=== PATIENT | female | born 1940 | race African-American/Black ===

== ENCOUNTER 2018-01-16 19:55 | Inpatient (IN) | payer MEDICARE ==
--- NOTE | 2018-01-16 20:38 | RAD ---
RADIOGRAPH CHEST 1 VIEW: HISTORY: 77-year-old with dyspnea. FINDINGS: There are no air space densities, pulmonary edema, pneumothorax, or cardiomegaly. The lateral costop hrenic angles are sharp. IMPRESSION: No acute cardiopulmonary findings. taye POS: HEATHER
[2018-01-16 20:54] LABS: Hemoglobin 14.9 g/dL (12.0-16.0); Mean Corpuscular HGB CONC 31.5 g/dL (32.0-36.0); Mean Corpuscular Hemoglobin 29.9 pg (27.0-31.0); Mean Platelet Volume 8.7 fL (7.4-10.4); Platelet Count 307 thou/uL (130-400); RBC Distribution Width 12.4 % (11.5-14.5); Red Blood Cell (RBC) Count 4.97 mill/uL (4.20-5.40); White Blood Cell (WBC) Count 20.5 thou/uL (4.8-10.8)
[2018-01-16 21:08] LABS: Band 2 % (5-11); Lymphocytes 5 % (21-51); MDiff Complete? YES; Monocytes 7 % (0-10); Neutrophil 86 % (42-75)
[2018-01-16 21:11] LABS: Bilirubin Negative (Negative); Blood, Urine Negative (Negative); Clarity CLEAR (Clear); Glucose, Urine (Dipstick) >=1000 mg/dL (Negative); Leukocyte Negative (Negative); Nitrite Negative (Negative); Protein, Urine (Dipstick) Negative (Neg-Trace); Specific Gravity, Urine 1.029 (1.002-1.036); Urobilinogen 0.2 mg/dL (0.2-1.0)
[2018-01-16 21:13] LABS: ALT (SGPT) 12 U/L (8-55); AST (SGOT) 15 U/L (5-34); Albumin 4.2 g/dL (3.4-4.8); Alkaline Phosphatase 122 U/L (40-150); BUN (Urea Nitrogen) 36 mg/dL (9.8-20.1); Bilirubin, Total 0.4 mg/dL (0.2-1.2); CK (CPK) 135 U/L (29-168); Calc. Creatinine Clearance 0 mL/min (70-130); Calcium 9.9 mg/dL (7.8-10.44); Chloride 96 mmol/L (98-107); Estimated GFR-MDRD 25; Globulin 3.2 g/dL (2.4-3.5); Potassium 4.3 mmol/L (3.5-5.1); Protein, Total 7.4 g/dL (6.0-8.3); Sodium 133 mmol/L (136-145)
[2018-01-16 21:16] LABS: Troponin I 0.038 ng/mL (< 0.028)
[2018-01-16 21:37] LABS: CKMB 7.8 ng/mL (0-6.6); Carbon Dioxide Less than 8 mmol/L (23-31); Glucose 793 mg/dL (83-110)
[2018-01-16] MEDS ORDERED: Insulin Regular 300 UNITS/3 ML VIAL ONE (21:40)
[2018-01-16 22:05] LABS: Base Excess-Venous -18.4 mmol/L (0 (+/- 2.5)); Bicarbonate (HCO3v) 7.2 mmol/L (1.0-85.0); CO2 Tension (PvCO2) 18.1 mmHg (41.0-51.0); Calcium, Ionized 1.09 mmol/L (1.12-1.32); Hemoglobin - Calc 14.6 g/dL (12.0-18.0); O2 Tension (PvO2) 61.7 mmHg (35.0-45.0); Potassium 3.7 mmol/L (3.4-4.7); T. Carbon Dioxide 7.7 mmol/L (1.0-85.0); pH (Venous) 7.207 (7.35-7.45); vO2 Saturation-calc 86.8 % (94-98)
[2018-01-16] MEDS ORDERED: Insulin Regular 100 units/100 ml in NS IVPB SCH (22:30)
[2018-01-17] MEDS ORDERED: Piperacillin/Tazobactam 4.5 GM in Sodium Chloride 0.9% 100 ML IVPB SCH (01:15)
[2018-01-17 03:10] VITALS: BMI 22.8
[2018-01-17] MEDS ORDERED: Dextrose 5 %-0.45 % NaCl 1,000 ML IV PRN (03:56)
[2018-01-17] MEDS ORDERED: Dextrose 5% in Water 1,000 ML IV PRN (03:56)
[2018-01-17] MEDS ORDERED: Dextrose 50% Abboject 50 ML SYRINGE SLOW IVP PRN (03:56)
[2018-01-17] MEDS ORDERED: Sodium Chloride 0.9% 1,000 ML IV PRN ×4 (03:56)
[2018-01-17] MEDS ORDERED: NS 0.9% w/ 20 MEQ KCL 1,000 ML/1,000 ML BAG IV PRN (03:56)
[2018-01-17] MEDS ORDERED: CCU ELECTROLYTE REPLACEMENT PROTOCOL FS PRN (03:57)
[2018-01-17] MEDS ORDERED: Magnesium Oxide 400 MG TAB PO PRN ×2 (03:57)
[2018-01-17] MEDS ORDERED: Potassium Phosphate 9 MMOL in Sodium Chloride 0.9% 100 ML IVPB PRN (03:57)
[2018-01-17] MEDS ORDERED: Potassium Chloride 20 MEQ TAB PO PRN (03:57)
[2018-01-17] MEDS ORDERED: Magnesium 2 GM/NS 0.9% 100 ML 2 GM in Premix Bag 1 BAG IVPB PRN (03:57)
[2018-01-17] MEDS ORDERED: Potassium Phosphate 15 MMOL in Sodium Chloride 0.9% 250 ML 250 ML IV PRN (03:57)
[2018-01-17] MEDS ORDERED: Potassium Chloride 40 MEQ in Premix Bag 1 BAG IVPB PRN (03:57)
[2018-01-17] MEDS ORDERED: Potassium Phosphate 12 MMOL in Sodium Chloride 0.9% 250 ML 250 ML IV PRN (03:57)
[2018-01-17] MEDS ORDERED: ADD ELECTROLYTE REPLACEMENT SET TO PROFILE FS SCH (04:00)
[2018-01-17] MEDS ORDERED: Insulin Regular 300 UNITS/3 ML VIAL IVP SCH (04:00)
[2018-01-17] MEDS: NS 0.9% w/ 20 MEQ KCL 1,000 ML/1,000 ML BAG IV PRN ×2 (04:09→06:31)
[2018-01-17 04:57] LABS: Anion Gap 16 mmol/L (10-20); BUN (Urea Nitrogen) 30 mg/dL (9.8-20.1); Calc. Creatinine Clearance 35 mL/min (70-130); Calcium 8.6 mg/dL (7.8-10.44); Carbon Dioxide 15 mmol/L (23-31); Chloride 109 mmol/L (98-107); Estimated GFR-MDRD 49; Glucose 351 mg/dL (83-110); Sodium 137 mmol/L (136-145)
[2018-01-17 05:04] LABS: Potassium 2.9 mmol/L (3.5-5.1)
[2018-01-17] MEDS: Potassium Chloride 40 MEQ in Sodium Chloride 0.9% 250 ML 250 ML IVPB PRN (06:31)
[2018-01-17] MEDS: Sodium Chloride 0.9% 1,000 ML IV SCH ×3 (06:49→20:51)
[2018-01-17] MEDS ORDERED: Piperacillin/Tazobactam 3.375 GM in Sodium Chloride 0.9% 100 ML IVPB SCH (08:00)
[2018-01-17] MEDS: D5 1/2 NS w/20 mEq KCL 1,000 ML IV PRN ×2 (08:37→13:17)
[2018-01-17] MEDS: Enoxaparin Sodium 30 MG/0.3 ML SYRINGE SC SCH (08:37)
--- NOTE | 2018-01-17 09:39 | HP ---
PRIMARY CARE PHYSICIAN: [facility]. SPOOLING MACHINE OPERATOR: Dr. Fernandez. CHIEF COMPLAINT: Fatigue and weakness. HISTORY OF PRESENT ILLNESS: This is a 78-year-old female with a prior history of pancreatitis and resultant insulin-dependent diabetes, who presents with a chief complaint of fatigue and weakness and was brought in by her for these issues. In the emergency department, she was found to be extremely hyperglycemic with a glucose of 790 along with acidosis with a bicarbonate less than 8. Patient has some degree of metabolic encephalopathy with decreased mentation. She is able to answer simple questions appropriately, but unable to cognitively work through more complicated questions. This is not the patient's baseline per the . Patient's at bedside stated that she had this sudden fatigue and weakness over the last day to day and a half. He suspects that she has not been taking her home insulin, because she is sometimes forgetful, particularly when she is ill and does not take them. At the time of my evaluation, the patient no longer has any acute complaints. She is lying in the hospital bed and does not participate very much in obtaining and providing a history. This is mostly provided by the patient's , who is with her at bedside. REVIEW OF SYSTEMS: As per HPI and as noted above. This is provided mostly by the patient's . Constitutional: No significant weight changes, no fevers, no chills. HEENT: No new headaches, dizziness, or lightheadedness. No recent changes in vision that were noted. Cardiovascular: No overt episodes of chest pain, chest pressure, left sided arm numbness or tingling. Respiratory: No apparent difficulty breathing. No new cough. No new congestion. Gastrointestinal: No new nausea, vomiting, abdominal pain, diarrhea, or constipation. Genitourinary: No changes in urinary frequency, quantity, or quality. Musculoskeletal: Other than generalized fatigue and weakness, no focal myalgias or arthralgias. Remainder of review of systems as provided by the on behalf of his has been negative. PAST MEDICAL HISTORY: 1. Type 2 diabetes. 2. Hypertension. PAST SURGICAL HISTORY: 1. Parathyroid tumor removal. 2. Status post right foot surgery. 3. Status post pancreatic surgery including pancreatic removal. HOME MEDICATIONS: Please see the EMR for full details. It appears that the patient currently takes lisinopril 20 mg daily, diltiazem 360 mg p.o. daily, metformin 500 mg p.o. b.i.d., isosorbide mononitrate 30 mg p.o. b.i.d. ALLERGIES: No known drug allergies. FAMILY HISTORY: The patient's is not aware of the patient having any significant family history of diabetes, coronary artery disease, or abdominal disease. SOCIAL HISTORY: The patient is and lives at home with her . No alcohol, tobacco, or illicit drug use. The patient's endorses that he would be the medical decision maker for his , as she is unable to make her medical decisions. He endorses that she wished to be FULL CODE at this point in time. PHYSICAL EXAMINATION: VITAL SIGNS: Temperature of 98.3, pulse of 84, respirations 18, satting 95% on room air with a blood pressure 100/34. GENERAL: The patient is lying in the hospital bed. She has her eyes closed, but is arousable to conversation. She answers short questions, but appears to be overall marginal historian at this point in time. HEENT: Normocephalic, atraumatic. Equal ocular motions are intact. Slightly dry mucous membranes. CARDIOVASCULAR: S1 and S2. Pulses 2+ bilateral upper extremities, no pitting pedal edema. LUNGS: Respirations limited anterior examination. Marginal air movement. No overt wheezes, rales, or rhonchi. ABDOMEN: Positive bowel sounds, soft. No overt tenderness to palpation. LABORATORY DATA AND IMAGING: WBC 20.5, hemoglobin 14.9, hematocrit 47.3, platelets 307. Sodium 133, potassium 4.3, chloride 96, bicarbonate less than 8 , BUN 36, creatinine 1.93, glucose 793, lactic acid 1.3, calcium 9.9, total bilirubin 0.4, AST 15, ALT 12, alkaline phosphatase 122, CK-MB of 7.8, troponin 0.038. Total protein 7.4, albumin 4.2. UA significant for glucose greater than 1000, ketones of 80, beta hydroxybutyrate 15.44. ASSESSMENT AND PLAN: A 78-year-old female presenting with a chief complaint of fatigue and weakness, found to have hyperglycemia and initiate insulin drip for the patient. IV fluids as per insulin protocol. The patient has noted leukocytosis, unclear if there is a source of infection at this point in time for the patient. Initial chest x-ray on initial evaluation has been unremarkable for an infectious etiology. Continue to monitor the patient's mental status and overall fatigue and weakness as her hyperglycemia slowly corrects. 1. Hypertension, stable. 2. Diet: Currently n.p.o. 3. Metabolic encephalopathy, likely to issues above, as discussed above. 4. Deep vein thrombosis prophylaxis with heparin secondary to the patient's acute renal dysfunction. 5. Leukocytosis. Please see discussion above. I appreciate Pulmonary Critical Care consultation for aid in managing this acutely ill patient. Admit the patient inpatient to the IMCU. The patient is currently FULL CODE. Questions or concerns, contact me at [facility]. BEA
[2018-01-17] MEDS: Famotidine 40 MG/4 ML VIAL SLOW IVP SCH (10:04)
[2018-01-17] MEDS ORDERED: Morphine 10 MG/ML VIAL SLOW IVP PRN (11:20)
[2018-01-17 11:29] LABS: Anion Gap 12 mmol/L (10-20); BUN (Urea Nitrogen) 22 mg/dL (9.8-20.1); Calc. Creatinine Clearance 48 mL/min (70-130); Carbon Dioxide 16 mmol/L (23-31); Chloride 116 mmol/L (98-107); Estimated GFR-MDRD 71; Glucose 156 mg/dL (83-110); Lipase 401 U/L (8-78); Sodium 140 mmol/L (136-145)
[2018-01-17] MEDS ORDERED: INSULIN DETEMIR SC SCH (16:00)
[2018-01-17] MEDS ORDERED: ISOVUE-370 76%-LOCM 1 ML ONE (16:56)
--- NOTE | 2018-01-17 17:27 | CT ---
CT ABDOMEN WITH AND WITHOUT CONTRAST 01/17/18 HISTORY: Abdominal pain. Epigastric pain. Elevated lipase. COMPARISON: None. FINDINGS: Mild atelectatic changes in the lung bases. Small effusions. No significant pericardial effusion. Heart size is enlarged. There is abnormal thickening of the second portion of the duodenum. The major ity of the pancreas is atrophied, although there is moderate edema within the anterior pararenal spac e around the expected location of the pancreatic body. No dilated loops of large or small bowel in the abdomen. The aortic contour is nonaneurysmal. Mild intrahepatic biliary dilatation. The common bile duct measures up to 9 mm. No hydronephrosis. Mild facet arthrosis of the lower lumbar spine. IMPRESSION: 1. Atrophy of the pancreatic body and tail with edema within the peripancreatic space and likely reactive thickening of the second and third portions of the duodenum. The findings are concerning fo r pancreatitis of the remaining pancreatic head. There is also mild intrahepatic and extrahepatic stephanie iary dilatation. 2. Small bilateral pleural effusions and atelectasis in the lung bases. 3. Given the thickening of the duodenal folds, a followup upper endoscopy may be beneficial in t his patient. POS: HEATHER
[2018-01-17 17:52] LABS: Anion Gap 11 mmol/L (10-20); BUN (Urea Nitrogen) 15 mg/dL (9.8-20.1); Calc. Creatinine Clearance 52 mL/min (70-130); Calcium 8.6 mg/dL (7.8-10.44); Carbon Dioxide 19 mmol/L (23-31); Chloride 110 mmol/L (98-107); Estimated GFR-MDRD 77; Glucose 208 mg/dL (83-110); Sodium 136 mmol/L (136-145)
[2018-01-17 23:12] LABS: Anion Gap 10 mmol/L (10-20); BUN (Urea Nitrogen) 10 mg/dL (9.8-20.1); Calc. Creatinine Clearance 62 mL/min (70-130); Calcium 8.6 mg/dL (7.8-10.44); Carbon Dioxide 19 mmol/L (23-31); Chloride 112 mmol/L (98-107); Estimated GFR-MDRD Greater than 90; Glucose 117 mg/dL (83-110); Potassium 3.3 mmol/L (3.5-5.1); Sodium 138 mmol/L (136-145)
[2018-01-18 04:29] LABS: #Eosinphils 0.1 thou/uL (0.0-0.7); #Lymphocytes 1.8 thou/uL (1.20-3.40); #Monocytes 0.9 thou/uL (0.11-0.59); #Neutrophils 8.4 thou/uL (1.40-6.50); %Basophils 0.3 % (0.0-1.0); %Eosinophils 0.6 % (0.0-10.0); %Lymphocytes 16.4 % (21.0-51.0); %Monocytes 7.8 % (0.0-10.0); %Neutrophils 74.9 % (42.0-75.0); Hemoglobin 14.3 g/dL (12.0-16.0); Mean Corpuscular HGB CONC 33.9 g/dL (32.0-36.0); Mean Corpuscular Hemoglobin 30.2 pg (27.0-31.0); Mean Corpuscular Volume 89.2 fl (81.0-99.0); Mean Platelet Volume 8.5 fL (7.4-10.4); Platelet Count 191 thou/uL (130-400); RBC Distribution Width 12.6 % (11.5-14.5); Red Blood Cell (RBC) Count 4.73 mill/uL (4.20-5.40); White Blood Cell (WBC) Count 11.2 thou/uL (4.8-10.8)
[2018-01-18 04:41] LABS: Anion Gap 13 mmol/L (10-20); BUN (Urea Nitrogen) 7 mg/dL (9.8-20.1); Calc. Creatinine Clearance 70 mL/min (70-130); Calcium 8.5 mg/dL (7.8-10.44); Carbon Dioxide 22 mmol/L (23-31); Chloride 109 mmol/L (98-107); Estimated GFR-MDRD Greater than 90; Glucose 106 mg/dL (83-110); Sodium 141 mmol/L (136-145)
[2018-01-18] MEDS: Sodium Chloride 0.9% 1,000 ML IV SCH ×2 (06:31→21:38)
[2018-01-18] MEDS: Potassium Chloride 40 MEQ in Sodium Chloride 0.9% 250 ML 250 ML IVPB PRN (06:32)
[2018-01-18] MEDS: Famotidine 40 MG/4 ML VIAL SLOW IVP SCH (08:05)
[2018-01-18] MEDS: Enoxaparin Sodium 30 MG/0.3 ML SYRINGE SC SCH (08:05)
--- NOTE | 2018-01-18 10:37 | PDOC.PN ---
- Subjective Encounter Start Date: 01/17/18 Encounter Start Time: 15:15 Patient is seen today, Alert and oriented. pt is Weak and c/o abdominal pain, has h/o paNCREEATITIS IN REMOTE PAST. - Objective Resuscitation Status: Resuscitation Status FULL:Full Resuscitation MAR Reviewed: Yes Vital Signs & Weight: Vital Signs (12 hours) Temp Pulse Resp BP Pulse Ox 01/18/18 08:00 97.8 F 71 19 95 01/18/18 07:41 97.8 F 71 19 179/73 H 95 01/18/18 04:03 98.4 F 86 17 179/65 H 95 01/18/18 00:23 98.4 F 76 16 162/57 H 95 Weight Weight 134 lb I&O: 01/17/18 01/18/18 01/19/18 06:59 06:59 06:59 Intake Total 1160 1450 Balance 1160 1450 Result Diagrams: 01/18/18 03:55 01/18/18 03:55 Additional Labs: Accuchecks 01/18/18 01/18/18 01/18/18 10:04 08:01 06:01 POC Glucose 161 H 135 H 134 H 01/18/18 01/18/18 01/18/18 03:56 02:46 01:35 POC Glucose 93 81 73 01/18/18 01/17/18 01/17/18 00:39 22:45 21:12 POC Glucose 67 L 103 150 H 01/17/18 01/17/18 01/17/18 20:10 18:59 17:12 POC Glucose 163 H 174 H 180 H 01/17/18 01/17/18 01/17/18 16:12 14:56 14:04 POC Glucose 208 H 211 H 191 H 01/17/18 01/17/18 01/17/18 13:01 12:27 10:57 POC Glucose 186 H 168 H 142 H Radiology Reviewed by me: Yes Phys Exam - Physical Examination HEENT: PERRLA, moist MMs Neck: no nodes, no JVD Respiratory: no wheezing, no rales Cardiovascular: RRR, no significant murmur Gastrointestinal: soft Abdominal pain with tenderness Musculoskeletal: no edema, pulses present Dx/Plan (1) Acute pancreatitis Code(s): K85.90 - ACUTE PANCREATITIS WITHOUT NECROSIS OR INFECTION, UNSP Status: Acute Comment: has elevated Lipase, Will do CT abdomen, to confirm pancreatitis, Pt refusing to believe she has pancrease. (2) DM type 2 (diabetes mellitus, type 2) Status: Acute Comment: Will continue with DKA protocol, will plan to transition to SC insulin, once her AG is closled. Will calculate Total insulin required and Give 50 % as Levemir dose and Stop Isulin drip 2 hrs after. Rest of the insulin will be given as meal time insilin TID. (3) Hypertension Code(s): I10 - ESSENTIAL (PRIMARY) HYPERTENSION Status: Acute Comment: Well controlled, Continue To Monitor (4) Leucocytosis Code(s): D72.829 - ELEVATED WHITE BLOOD CELL COUNT, UNSPECIFIED Status: Acute Comment: likely from Dehydration, Monitor for any source of infection. - Plan cont current plan of care, plan discussed w/ family, PT/OT, psychotherapist social worker, incentive spirometry, DVT proph w/lovenox * . - Discharge Day Encounter end time: 16:10 Review of Systems - Review of Systems Eyes: negative: Pain, Vision Change, Conjunctivae Inflammation, Eyelid Inflammation, Redness, Other ENT: negative: Ear Pain, Ear Discharge, Nose Pain, Nose Discharge, Nose Congestion, Mouth Pain, Mouth Swelling, Throat Pain, Throat Swelling, Other Respiratory: negative: Cough, Dry, Shortness of Breath, Hemoptysis, SOB with Excertion, Pleuritic Pain, Sputum, Wheezing Cardiovascular: negative: chest pain, palpitations, orthopnea, paroxysmal nocturnal dyspnea, edema, light headedness, other Gastrointestinal: negative: Nausea, Vomiting, Abdominal Pain, Diarrhea, Constipation, Melena, Hematochezia, Other Genitourinary: negative: Dysuria, Frequency, Incontinence, Hematuria, Retention , Other - Medications/Allergies Allergies/Adverse Reactions: Allergies Allergy/AdvReac Type Severity Reaction Status Date / Time No Known Allergies Allergy Verified 01/17/18 03:01 Medications: Current Medications Dextrose/Water (Dextrose 50%) 25 gm SLOW IVP PRN PRN PRN Reason: HYPOGLYCEMIA PROTOCOL Enoxaparin Sodium (Lovenox) 30 mg SC 0900 [facility] Last Admin: 01/18/18 08:05 Dose: 30 mg Famotidine (Pepcid) 20 mg SLOW IVP DAILY [facility] Last Admin: 01/18/18 08:05 Dose: 20 mg Glucagon (Glucagon) 1 mg IM PRN PRN PRN Reason: HYPOGLYCEMIA PROTOCOL Sodium Chloride (Normal Saline 0.9%) 1,000 mls @ 1,000 mls/hr IV .Q1H PRN; Protocol PRN Reason: STEP 1: DKA PROTOCOL Sodium Chloride (Normal Saline 0.9%) 1,000 mls @ 500 mls/hr IV .Q2H PRN PRN Reason: STEP 1: DKA PROTOCOL Potassium Chloride/Sodium Chloride (Ns 0.9% W/ 20 Meq Kcl) 1,000 ml in 1,000 mls @ 500 mls/hr IV .Q2H PRN; Protocol PRN Reason: STEP 2: DKA PROTOCOL Last Admin: 01/17/18 06:31 Dose: 1,000 mls Sodium Chloride (Normal Saline 0.9%) 1,000 mls @ 500 mls/hr IV .Q2H PRN; Protocol PRN Reason: STEP 2: DKA PROTOCOL Potassium Chloride/Sodium Chloride (Ns 0.9% W/ 20 Meq Kcl) 1,000 ml in 1,000 mls @ 250 mls/hr IV .Q4H PRN PRN Reason: STEP 3: DKA PROTOCOL Sodium Chloride (Normal Saline 0.9%) 1,000 mls @ 250 mls/hr IV .Q4H PRN PRN Reason: STEP 3:DKA PROTOCOL Dextrose/Sodium Chloride (D5 1/2 Ns) 1,000 mls @ 250 mls/hr IV .Q4H PRN; Protocol PRN Reason: STEP 4: DKA PROTOCOL Potassium Chloride/Dextrose/Sod Cl (D5 1/2 Ns W/20 Meq Kcl) 1,000 mls @ 250 mls /hr IV .Q4H PRN; Protocol PRN Reason: STEP 4: DKA PROTOCOL Last Admin: 01/17/18 13:17 Dose: 1,000 mls Dextrose/Water (D5w) 1,000 mls @ 0 mls/hr IV INF PRN; As Directed PRN Reason: HYPOGLYCEMIA PROTOCOL Last Admin: 01/18/18 00:57 Dose: 1,000 mls Potassium Chloride 40 meq/ (Sodium Chloride) 270 mls @ 135 mls/hr IVPB ASDIR PRN PRN Reason: FOR SERUM K+ 2.5 - 3.5 Last Admin: 01/18/18 06:32 Dose: 270 mls Potassium Chloride 40 meq/ (Device) 100 mls @ 50 mls/hr IVPB ASDIR PRN PRN Reason: FOR SERUM K+ 2.5 - 3.5 Magnesium Sulfate 1 gm/ Sodium (Chloride) 102 mls @ 102 mls/hr IV PRN PRN PRN Reason: MAG LEVEL 1.4 - 2.0 Magnesium Sulfate 2 gm/ Device 100 mls @ 100 mls/hr IVPB ASDIR PRN PRN Reason: MAGNESIUM < 1.4 Potassium Phosphate 9 mmol/ (Sodium Chloride) 103 mls @ 25.75 mls/hr IVPB ASDIR PRN PRN Reason: Phosphate 1.0-1.8 Potassium Phosphate 12 mmol/ (Sodium Chloride) 254 mls @ 63.5 mls/hr IV ASDIR PRN PRN Reason: Serum phosphate 0.5-0.9 Potassium Phosphate 15 mmol/ (Sodium Chloride) 255 mls @ 63.75 mls/hr IV ASDIR PRN PRN Reason: Serum Phos < 0.5 Sodium Chloride (Normal Saline 0.9%) 1,000 mls @ 100 mls/hr IV .Q10H [facility] Last Admin: 01/18/18 06:31 Dose: 1,000 mls Magnesium Oxide (Magnesium Oxide) 400 mg PO BIDPRN PRN PRN Reason: FOR SERUM MAG 1.4 - 2.0 Magnesium Oxide (Magnesium Oxide) 800 mg PO PRN PRN PRN Reason: FOR SERUM MAG < 1.4 Miscellaneous Medication (Phos-Nak) 1 pkt PO TIDPRN PRN PRN Reason: FOR PHOS LEVEL 1.0 - 1.8 Miscellaneous Medication (Phos-Nak) 2 pkt PO TIDPRN PRN PRN Reason: FOR PHOS LEVEL 0.5 - 1.0 Morphine Sulfate (Morphine) 3 mg SLOW IVP Q3H PRN PRN Reason: Pain Last Admin: 01/17/18 13:16 Dose: 3 mg Ccu Electrolyte (Replacement Protocol) 0 each FS PRN PRN PRN Reason: FOR ELECTROLYTE REPLACEMENT Potassium Chloride (K-Dur) 40 meq PO ASDIR PRN PRN Reason: FOR SERUM K+ 2.5 - 3.5 Potassium Chloride (Klor-Con) 40 meq PER TUBE ASDIR PRN PRN Reason: FOR SERUM K+ 2.5-3.5 Sodium Chloride (Flush - Normal Saline) 10 ml IVF PRN PRN PRN Reason: Saline Flush
[2018-01-18 11:36] LABS: Anion Gap 8 mmol/L (10-20); BUN (Urea Nitrogen) 6 mg/dL (9.8-20.1); Calc. Creatinine Clearance 63 mL/min (70-130); Calcium 9.1 mg/dL (7.8-10.44); Carbon Dioxide 32 mmol/L (23-31); Chloride 104 mmol/L (98-107); Estimated GFR-MDRD Greater than 90; Glucose 204 mg/dL (83-110); Sodium 140 mmol/L (136-145)
--- NOTE | 2018-01-18 13:00 | PQF ---
DATE: 01-18-18 ATTN: DR. TRISHA BRIONES Please exercise your independent, professional judgment in responding to the clarification form. Clinical indicators are provided on the bottom of this form for your review Please check appropriate box(s) to clarify if the following diagnosis has been ruled in or ruled out: DKA [x ] Ruled in diagnosis [ ] Continue to treat [ ] Resolved [ ] Ruled out diagnosis [ ] Other diagnosis [ ] Unable to determine In addition, please specify: Present on Admission (POA): [x ] Yes [ ] No [ ] Unable to determine For continuity of documentation, please document condition throughout progress notes and discharge summary. Thank You. CLINICAL INDICATORS - SIGNS / SYMPTOMS / LABS ER DIAGNOSIS: DKA, DEHYDRATION, DIARRHEA, SEPSIS, VOMITING H&P: FATIGUE AND WEAKNESS, FOUND TO HAVE HYPERGLYCEMIA AND INITIATE INSULIN DRIP FOR THE PATIENT. IV FLUIDS PER INSULIN PROTOCOL. PN DR. BRIONES 01-17-18: ACUTE PANCREATITIS, ACUTE DM TYPE 2, WILL CONTINUE WITH DKA PROTOCOL, WILL PLAN TO TRANSITION TO SC INSULIN, ONCE HER AG IS CLOSED RISK FACTORS: HX OF TYPE 2 DIABETES, HTN, FATIGUE WEAKNESS, HE SUSPECTS SHE HAS NOT BEEN TAKING HER HOME INSULIN, BECAUSE SHE IS SOMETIMES FORGETFUL, PARTICULARLY WHEN SHE IS ILL AND DOES NOT TAKE THEM. TREATMENTS: PN DR. BRIONES 01-17-18: ACUTE PANCREATITIS, ACUTE DM TYPE 2, WILL CONTINUE WITH DKA PROTOCOL, WILL PLAN TO TRANSITION TO SC INSULIN, ONCE HER AG IS CLOSED (This form is maintained as a part of the permanent medical record) 2014 [employer]. All Rights Reserved MTDD
--- NOTE | 2018-01-18 15:25 | PDOC.PN ---
- Subjective Encounter Start Date: 01/18/18 Encounter Start Time: 11:00 Patient is seen today, alert and oriented. her Abdominal pain is improving. pt is seen by GI today, on clear liquids. - Objective Resuscitation Status: Resuscitation Status FULL:Full Resuscitation MAR Reviewed: Yes Vital Signs & Weight: Vital Signs (12 hours) Temp Pulse Resp BP Pulse Ox 01/18/18 11:10 97.9 F 66 20 170/94 H 96 01/18/18 08:00 97.8 F 71 19 95 01/18/18 07:41 97.8 F 71 19 179/73 H 95 01/18/18 04:03 98.4 F 86 17 179/65 H 95 Weight Weight 134 lb I&O: 01/17/18 01/18/18 01/19/18 06:59 06:59 06:59 Intake Total 1160 1450 Balance 1160 1450 Result Diagrams: 01/18/18 03:55 01/18/18 11:09 Additional Labs: Accuchecks 01/18/18 01/18/18 01/18/18 12:08 10:04 08:01 POC Glucose 189 H 161 H 135 H 01/18/18 01/18/18 01/18/18 06:01 03:56 02:46 POC Glucose 134 H 93 81 01/18/18 01/18/18 01/17/18 01:35 00:39 22:45 POC Glucose 73 67 L 103 01/17/18 01/17/18 01/17/18 21:12 20:10 18:59 POC Glucose 150 H 163 H 174 H 01/17/18 01/17/18 17:12 16:12 POC Glucose 180 H 208 H Radiology Reviewed by me: Yes Phys Exam - Physical Examination HEENT: PERRLA Neck: no nodes Respiratory: no wheezing Cardiovascular: RRR Gastrointestinal: soft Musculoskeletal: no edema Neurological: non-focal, normal sensation Lymphatic: no nodes Psychiatric: normal affect Skin: no rash, normal turgor Dx/Plan (1) DKA (diabetic ketoacidoses) Code(s): E13.10 - OTH DIABETES MELLITUS WITH KETOACIDOSIS WITHOUT COMA Status : Resolved Comment: Pt is On SC insulin now, Will do 10 untic Sc for a basal Insulin. Pt is on clear liquids for possible EGD. (2) Acute pancreatitis Code(s): K85.90 - ACUTE PANCREATITIS WITHOUT NECROSIS OR INFECTION, UNSP Status: Acute Comment: has elevated Lipase,CT abdomen, confirmed pancreatitis of the head of pancreas, with atrophic tail and body, Duodinitis will be evalauted by GI for possible EGD. (3) DM type 2 (diabetes mellitus, type 2) Status: Acute Comment: Will continue with DKA protocol, will plan to transition to SC insulin, once her AG is closled. Will calculate Total insulin required and Give 50 % as Levemir dose and Stop Isulin drip 2 hrs after. Rest of the insulin will be given as meal time insilin TID. (4) Hypertension Code(s): I10 - ESSENTIAL (PRIMARY) HYPERTENSION Status: Acute Comment: Well controlled, Continue To Monitor (5) Leucocytosis Code(s): D72.829 - ELEVATED WHITE BLOOD CELL COUNT, UNSPECIFIED Status: Acute Comment: likely from Dehydration, Monitor for any source of infection. - Plan cont current plan of care, plan discussed w/ family, PT/OT, social service technician, respiratory therapy, incentive spirometry, out of bed/ambulate, DVT proph w/ lovenox * . - Discharge Day Encounter end time: 11:35 Review of Systems - Review of Systems Constitutional: negative: fever, chills, sweats, weakness, malaise, other Eyes: negative: Pain, Vision Change, Conjunctivae Inflammation, Eyelid Inflammation, Redness, Other ENT: negative: Ear Pain, Ear Discharge, Nose Pain, Nose Discharge, Nose Congestion, Mouth Pain, Mouth Swelling, Throat Pain, Throat Swelling, Other Respiratory: negative: Cough, Dry, Shortness of Breath, Hemoptysis, SOB with Excertion, Pleuritic Pain, Sputum, Wheezing Cardiovascular: negative: chest pain, palpitations, orthopnea, paroxysmal nocturnal dyspnea, edema, light headedness, other Gastrointestinal: negative: Nausea, Vomiting, Abdominal Pain, Diarrhea, Constipation, Melena, Hematochezia, Other Genitourinary: negative: Dysuria, Frequency, Incontinence, Hematuria, Retention , Other Musculoskeletal: negative: Neck Pain, Shoulder Pain, Arm Pain, Back Pain, Hand Pain, Leg Pain, Foot Pain, Other Skin: negative: Rash, Lesions, Pedro, Bruising, Other - Medications/Allergies Allergies/Adverse Reactions: Allergies Allergy/AdvReac Type Severity Reaction Status Date / Time No Known Allergies Allergy Verified 01/17/18 03:01 Medications: Current Medications Dextrose/Water (Dextrose 50%) 25 gm SLOW IVP PRN PRN PRN Reason: HYPOGLYCEMIA PROTOCOL Diltiazem HCl (Cardizem Cd) 360 mg PO DAILY [facility] Enoxaparin Sodium (Lovenox) 30 mg SC 0900 [facility] Last Admin: 01/18/18 08:05 Dose: 30 mg Glucagon (Glucagon) 1 mg IM PRN PRN PRN Reason: HYPOGLYCEMIA PROTOCOL Sodium Chloride (Normal Saline 0.9%) 1,000 mls @ 1,000 mls/hr IV .Q1H PRN; Protocol PRN Reason: STEP 1: DKA PROTOCOL Sodium Chloride (Normal Saline 0.9%) 1,000 mls @ 500 mls/hr IV .Q2H PRN PRN Reason: STEP 1: DKA PROTOCOL Potassium Chloride/Sodium Chloride (Ns 0.9% W/ 20 Meq Kcl) 1,000 ml in 1,000 mls @ 500 mls/hr IV .Q2H PRN; Protocol PRN Reason: STEP 2: DKA PROTOCOL Last Admin: 01/17/18 06:31 Dose: 1,000 mls Sodium Chloride (Normal Saline 0.9%) 1,000 mls @ 500 mls/hr IV .Q2H PRN; Protocol PRN Reason: STEP 2: DKA PROTOCOL Potassium Chloride/Sodium Chloride (Ns 0.9% W/ 20 Meq Kcl) 1,000 ml in 1,000 mls @ 250 mls/hr IV .Q4H PRN PRN Reason: STEP 3: DKA PROTOCOL Sodium Chloride (Normal Saline 0.9%) 1,000 mls @ 250 mls/hr IV .Q4H PRN PRN Reason: STEP 3:DKA PROTOCOL Dextrose/Sodium Chloride (D5 1/2 Ns) 1,000 mls @ 250 mls/hr IV .Q4H PRN; Protocol PRN Reason: STEP 4: DKA PROTOCOL Potassium Chloride/Dextrose/Sod Cl (D5 1/2 Ns W/20 Meq Kcl) 1,000 mls @ 250 mls /hr IV .Q4H PRN; Protocol PRN Reason: STEP 4: DKA PROTOCOL Last Admin: 01/17/18 13:17 Dose: 1,000 mls Dextrose/Water (D5w) 1,000 mls @ 0 mls/hr IV INF PRN; As Directed PRN Reason: HYPOGLYCEMIA PROTOCOL Last Admin: 01/18/18 00:57 Dose: 1,000 mls Potassium Chloride 40 meq/ (Sodium Chloride) 270 mls @ 135 mls/hr IVPB ASDIR PRN PRN Reason: FOR SERUM K+ 2.5 - 3.5 Last Admin: 01/18/18 06:32 Dose: 270 mls Potassium Chloride 40 meq/ (Device) 100 mls @ 50 mls/hr IVPB ASDIR PRN PRN Reason: FOR SERUM K+ 2.5 - 3.5 Magnesium Sulfate 1 gm/ Sodium (Chloride) 102 mls @ 102 mls/hr IV PRN PRN PRN Reason: MAG LEVEL 1.4 - 2.0 Magnesium Sulfate 2 gm/ Device 100 mls @ 100 mls/hr IVPB ASDIR PRN PRN Reason: MAGNESIUM < 1.4 Potassium Phosphate 9 mmol/ (Sodium Chloride) 103 mls @ 25.75 mls/hr IVPB ASDIR PRN PRN Reason: Phosphate 1.0-1.8 Potassium Phosphate 12 mmol/ (Sodium Chloride) 254 mls @ 63.5 mls/hr IV ASDIR PRN PRN Reason: Serum phosphate 0.5-0.9 Potassium Phosphate 15 mmol/ (Sodium Chloride) 255 mls @ 63.75 mls/hr IV ASDIR PRN PRN Reason: Serum Phos < 0.5 Sodium Chloride (Normal Saline 0.9%) 1,000 mls @ 100 mls/hr IV .Q10H [facility] Last Admin: 01/18/18 06:31 Dose: 1,000 mls Insulin Detemir 20 units/ (Miscellaneous Medication) 0.2 mls @ 0 mls/hr SC HS [facility] Isosorbide Mononitrate (Imdur Er) 30 mg PO BID [facility] Lisinopril (Zestril) 20 mg PO DAILY [facility] Magnesium Oxide (Magnesium Oxide) 400 mg PO BIDPRN PRN PRN Reason: FOR SERUM MAG 1.4 - 2.0 Magnesium Oxide (Magnesium Oxide) 800 mg PO PRN PRN PRN Reason: FOR SERUM MAG < 1.4 Miscellaneous Medication (Phos-Nak) 1 pkt PO TIDPRN PRN PRN Reason: FOR PHOS LEVEL 1.0 - 1.8 Miscellaneous Medication (Phos-Nak) 2 pkt PO TIDPRN PRN PRN Reason: FOR PHOS LEVEL 0.5 - 1.0 Morphine Sulfate (Morphine) 3 mg SLOW IVP Q3H PRN PRN Reason: Pain Last Admin: 01/17/18 13:16 Dose: 3 mg Ccu Electrolyte (Replacement Protocol) 0 each FS PRN PRN PRN Reason: FOR ELECTROLYTE REPLACEMENT Pantoprazole Sodium (Protonix) 40 mg IVP Q12HR [facility] Potassium Chloride (K-Dur) 40 meq PO ASDIR PRN PRN Reason: FOR SERUM K+ 2.5 - 3.5 Potassium Chloride (Klor-Con) 40 meq PER TUBE ASDIR PRN PRN Reason: FOR SERUM K+ 2.5-3.5 Sodium Chloride (Flush - Normal Saline) 10 ml IVF PRN PRN PRN Reason: Saline Flush
[2018-01-18 15:44] LABS: Hemoglobin A1c 11.3 % (4.0-6.0)
[2018-01-18] MEDS ORDERED: Dextrose 50% Abboject 50 ML SYRINGE IVP PRN (18:38)
[2018-01-18] MEDS ORDERED: Dextrose 5% in Water 1,000 ML IV PRN (18:38)
[2018-01-18] MEDS ORDERED: Insulin Detemir 100 UNITS/ML 25 UNITS in Pre-Filled Syringe 1 EACH SC SCH (21:00)
[2018-01-18] MEDS ORDERED: Insulin Detemir 100 UNITS/ML 20 UNITS in Pre-Filled Syringe 1 EACH SC SCH (21:00)
--- NOTE | 2018-01-18 21:23 | CON ---
DATE OF CONSULTATION: 01/18/2018 SERVICE: Pulmonary Medicine. REASON FOR CONSULTATION: DKA. HISTORY OF PRESENT ILLNESS: Patient is a 78-year-old white female with past medical history significant for type 2 diabetes mellitus. She forgot to or stopped taking her insulin. As a result, her blood sugars are running in the 400s for at least 2 or 3 weeks. The last time she checked her blood sugar was over 2 weeks prior to presentation. Either way, she presented in DKA and was horrendously dehydrated. During the day, she was discovered to have slightly elevated lipase. She was having some belly pain, which resolved shortly after presentation. The CT scan at that time was suggestive of some inflammatory changes in the first portion in the duodenum, and the pancreas. There was concern for pancreatitis, though the patient was completely asymptomatic. Lipase was performed, but only marginally elevated. Either way, all the patient 's end organ damage has resolved with nothing more than hydration and insulin. She also resolved her DKA and she is feeling much improved. PAST MEDICAL HISTORY: 1. Type 2 diabetes mellitus. 2. Hypertension. 3. Medications noncompliance. PAST SURGICAL HISTORY: 1. Parathyroid tumor excision. 2. Right foot surgery. 3. Pancreatic surgery including pancreatic head removal. ALLERGIES: No known drug allergies. MEDICATIONS: Medication list or inpatient medications were reviewed. No specific updates were made at this time. FAMILY HISTORY: Noncontributory. SOCIAL HISTORY: The patient denies any alcohol, tobacco, or illicit drug use. She has no exposure to chemicals, dust, asbestos, or tuberculosis. REVIEW OF SYSTEMS: General, head, ears, eyes, nose, throat, cardiovascular, respiratory, GI, , musculoskeletal, neurologic, and skin is negative except as mentioned in the HPI. PHYSICAL EXAMINATION: VITAL SIGNS: Afebrile, pulse 82, respirations 15, saturation 99% on room air. GENERAL: Patient is awake, alert, in no apparent distress. LUNGS: Decent air entry. There is minimal dependent crackles. No prolonged expiratory phase or wheezing is appreciated. HEART: Normal rate, regular. ABDOMEN: Soft, nontender, nondistended. Bowel sounds are positive. MUSCULOSKELETAL: No cyanosis or clubbing. There is no pitting in the bilateral lower extremities. She continues to have a little bit of volume depletion peripherally. LABORATORY DATA: WBC 11.2 and beautifully down trending, hemoglobin 14.3 and stable, platelets 191,000. Neutrophil count is falling to the normal limits. PH 7.20, pCO2 of 18, pO2 of 61. Blood sugars ranged from 161-393. Hemoglobin A1c 11.3, lipase 93 and beautifully down trending. Basic metabolic profile is essentially unremarkable at this time and all of her electrolyte abnormalities have returned to the normal limits. Her bicarbonate is a little elevated today , which is curious because we have been hydrating her quite aggressively. Urinalysis is unremarkable. Beta-hydroxybutyric acid was 15.4 on presentation. Blood cultures x2 and Influenza A and B are negative. IMAGING: CT of the abdomen demonstrates atrophy of the pancreatic body and tail with edema within the peripancreatic space and likely some thickening of a portion of the duodenum. Minimal bilateral pleural effusions with some associated atelectasis is present. ASSESSMENT: 1. Diabetic ketoacidosis. 2. Type 2 diabetes mellitus. 3. Medical noncompliance. 4. Possible cognitive impairment. 5. Metabolic encephalopathy, resolved. PLAN: The patient is doing absolutely fantastic. She certainly does not meet criteria currently for acute pancreatitis. She does have some CT findings are consistent with that, but the lipase simply is not elevated enough, she does not have any significant abdominal discomfort characteristic of this. The lipase has already been repeated and has gone down into normal range. We can transition her off aggressive hydration and transitioned onto subcutaneous insulin. Pulmonary Critical Care will continue to follow while she remains in this location, but truth to be told, she is stable for transition out of the [facility]. We will make certainly mobilize her if she remains in this location. 70 minutes have been devoted to this patient in various activities. I personally reviewed all imaging studies and laboratory data noted within this document. For fifty percent of this time, I was interacting with the patient at the bedside or coordinating care with the care team. For the remainder of the time I was immediately available to the patient in the hospital unit. BEA
[2018-01-18] MEDS: Pantoprazole 40 MG VIAL IVP SCH (21:38)
[2018-01-19] MEDS: Sodium Chloride 0.9% 1,000 ML IV SCH ×2 (04:11→14:28)
[2018-01-19 05:34] LABS: ALT (SGPT) 11 U/L (8-55); AST (SGOT) 16 U/L (5-34); Albumin 3.1 g/dL (3.4-4.8); Alkaline Phosphatase 84 U/L (40-150); Anion Gap 11 mmol/L (10-20); BUN (Urea Nitrogen) 8 mg/dL (9.8-20.1); Bilirubin, Total 0.8 mg/dL (0.2-1.2); Calc. Creatinine Clearance 80 mL/min (70-130); Calcium 8.8 mg/dL (7.8-10.44); Carbon Dioxide 27 mmol/L (23-31); Chloride 105 mmol/L (98-107); Estimated GFR-MDRD Greater than 90; Globulin 2.6 g/dL (2.4-3.5); Glucose 80 mg/dL (83-110); Lipase 38 U/L (8-78); Protein, Total 5.7 g/dL (6.0-8.3); Sodium 140 mmol/L (136-145)
[2018-01-19 05:39] LABS: Potassium 2.7 mmol/L (3.5-5.1)
[2018-01-19 05:49] LABS: Band 4 % (5-11); Eosinophils 1 % (0-10); Hemoglobin 14.7 g/dL (12.0-16.0); Lymphocytes 20 % (21-51); MDiff Complete? YES; Mean Corpuscular Hemoglobin 29.5 pg (27.0-31.0); Mean Corpuscular Volume 89.4 fl (81.0-99.0); Mean Platelet Volume 8.4 fL (7.4-10.4); Monocytes 4 % (0-10); Neutrophil 64 % (42-75); PLT Morphology Comment Appears Adequate; Platelet Count 196 thou/uL (130-400); RBC Distribution Width 12.4 % (11.5-14.5); RBC Morphology Normal; Reactive Lymphocytes 7 % (0-10); White Blood Cell (WBC) Count 8.8 thou/uL (4.8-10.8)
[2018-01-19] MEDS: Potassium Chloride 40 MEQ in Sodium Chloride 0.9% 250 ML 250 ML IVPB PRN (07:20)
[2018-01-19] MEDS ORDERED: DILTIAZEM HCL 360 MG PO SCH (09:00)
[2018-01-19] MEDS: Enoxaparin Sodium 30 MG/0.3 ML SYRINGE SC SCH (09:08)
[2018-01-19] MEDS: Lisinopril 20 MG TAB PO SCH (09:09)
[2018-01-19] MEDS: Pantoprazole 40 MG VIAL IVP SCH ×2 (09:10→20:55)
--- NOTE | 2018-01-19 11:02 | CON ---
DATE OF CONSULTATION: 01/18/2018 REASON FOR CONSULTATION: Elevated lipase, abdominal pain. HISTORY OF PRESENT ILLNESS: Ms. Ovalles is a 78-year-old female, who was brought to the hospital by her yesterday for weakness and inability to ambulate. Apparently, she became sick about 2 d ays prior to admission, was just not eating well and was having some stool, some sore throat as well and coughing. He tried to get her better at home, but she was worse. He ultimately brought he r to the emergency room. Here, she was found to have mildly elevated lipase, glucose of 790 and with mild DKA. Presently, her sugars have been better controlled, and she is feeling better. In talking with the and family, they feel that she is becoming more confused in the past. She is havin g problems of confusion and it is felt that maybe she was just not taking her medicines and became il l with that. She apparently before Tuesday has been eating well and having no GI symptoms. She does have a remote history of pancreatitis. Apparently, she had a gallstone pancreatitis about 20 years a go and became very ill and was hospitalized for about 2 months. It does not appear that she had any surgery at that time and the family does not recall of even taking her gallbladder out, but she lost most of the pancreas with that episode and subsequent to that was diabetic. Presently, she is feelin g better. She wants to eat and drink. Her lipase was 400 yesterday. She had a CAT scan that showed some thickening of the duodenum in the upper portion around the C-loop and minimal pancreatic tissue could be seen and appeared to be mostly atrophic from what is there. There is no overt free fluid o r masses. Overall, she is feeling a little bit better now. She had pancreatic surgery included panc reatic removal, but the patient and the family states she has not had any abdominal surgery. PAST MEDICAL HISTORY: 1. Type 2 diabetes, seemingly beginning after an episode of severe pancreatitis 20 years ago. 2. Hypertension. PAST SURGICAL HISTORY: Parathyroid tumor removal, right foot surgery. ALLERGIES: None known. FAMILY HISTORY: Noncontributory. SOCIAL HISTORY: She is , lives at home with her . She has had some problems with throat clearing and cough recently and a little bit of mild sore throa t. MEDICATIONS AT HOME: Lisinopril, diltiazem, metformin, insulin, and isosorbide mononitrate. PRESENT MEDICATIONS HERE: D5 half normal saline, Lovenox, Pepcid, magnesium oxide, electrolyte repla cement protocol as needed, and IV fluid resuscitation. PHYSICAL EXAMINATION: VITAL SIGNS: Temperature 97.9, pulse 66, blood pressure 170/94. LUNGS: Clear. CARDIOVASCULAR: Heart regular without clicks or murmurs. ABDOMEN: Soft and nontender with no rebound or guarding. EXTREMITIES: No clubbing, cyanosis or edema. LABORATORY STUDIES: White count was 20,000 yesterday, 11.2 today; hemoglobin is 14.3; and platelet c ount is 191. A pH on venous blood gas on the was 7.27. Chemistries: Bicarbonate is increased from less than 8 on the , came in to 32. Sodium 140, potassium 4, BUN and creatinine are 6 and 0 .72, triglycerides 74, lipase is 401 yesterday. LFTs: AST and ALT are 15 and 12 on admission, alkal ine phosphatase 122 and a bilirubin 0.4. IMAGING STUDIES: Pancreatic atrophy on CAT scan with some mild edema in peripancreatic space; thicke ashley in the second and third portion of duodenum, it is unclear if this is chronic or acute; small bi lateral effusions; thickened duodenal folds. ASSESSMENT: 1. Admitted with diabetic ketoacidosis, seems this may be related to dementia and her failure to john e medications. This may be more of an issue than her acute admission. 2. Mild elevation of lipase with no overt pancreatitis and actually minimal pancreatic tissue on her CT. This could represent just a change from her diabetic ketoacidosis as you will see elevated lipa se. There is some mild pancreatitis and diabetic ketoacidosis often or could be that she has some du odenitis or even ulcer disease. RECOMMENDATIONS: 1. Changed to IV PPI. 2. Clear liquids. 3. Recheck lipase. If the patient improves, we can just advance her diet as tolerated and I would treat with PPI empiric ally as the family wants to avoid any endoscopy. If she does not, then she will need an EGD and we c an always perform that tomorrow. We will go ahead and follow along with you. We will defer manageme nt of her dementia and mental confusion issues to primary service.
[2018-01-19 12:20] LABS: Potassium 3.5 mmol/L (3.5-5.1)
--- NOTE | 2018-01-19 13:10 | PRG ---
DATE OF SERVICE: 01/19/2018 SERVICE: Pulmonary Medicine INTERVAL HISTORY: The patient is doing fantastic from a cardiovascular and respiratory standpoint. She denies any current fevers, chills, nausea or vomiting. She had no overnight events. She has got a little bit of constipation, but otherwise, feels that she is doing better on a day by day basis. PHYSICAL EXAMINATION: VITAL SIGNS: Afebrile, pulse 87, blood pressure 142/88, respirations 17, saturation 94% on room air. GENERAL: The patient is awake, alert, no apparent distress. LUNGS: Excellent air entry. There is no prolonged expiratory phase, wheezing, rhonchi or crackles. HEART: Normal rate, regular. ABDOMEN: Soft, nontender, nondistended. Bowel sounds are positive. MUSCULOSKELETAL: No cyanosis or clubbing. No pitting in the bilateral lower extremities. NEUROLOGIC: Grossly nonfocal. LABORATORY DATA: WBC 8.8, hemoglobin 14.7, platelets 196,000. Potassium 3.5 and stable. Blood suga rs ranged from 101-164. They are dropping a little bit low. Liver function studies have normalized. Lipase is now well within the normal limits. Blood cultures x2 are unremarkable. ASSESSMENT: 1. Diabetic ketoacidosis. 2. Type 2 diabetes mellitus. 3. Medical noncompliance. 4. Possible cognitive impairment. 5. Metabolic encephalopathy, resolved. PLAN: The patient is stable for transition out of the [facility]. We will give her some constipation medi cation to prevent her from getting locked up. Pulmonary will continue to follow for the time being, but if she remains stable over the next 24 hours, I will sign off. Please call with additional quest ions or concerns moving forward.
[2018-01-19] MEDS ORDERED: Senokot S 8.6-50 MG TAB PO SCH (13:15)
[2018-01-19] MEDS ORDERED: Polyethylene Glycol 3350 17 GM Packet PO SCH (13:15)
[2018-01-19] MEDS: Potassium Chloride 20 MEQ TAB PO SCH (14:26)
[2018-01-19] MEDS: HumaLOG 300 UNITS/3 ML VIAL SC PRN (17:14)
[2018-01-19] MEDS: Insulin Detemir 100 UNITS/ML 12 UNITS in Pre-Filled Syringe 1 EACH SC SCH (20:55)
[2018-01-20 04:34] LABS: Anion Gap 9 mmol/L (10-20); BUN (Urea Nitrogen) 9 mg/dL (9.8-20.1); Calc. Creatinine Clearance 70 mL/min (70-130); Calcium 9.3 mg/dL (7.8-10.44); Carbon Dioxide 31 mmol/L (23-31); Chloride 105 mmol/L (98-107); Estimated GFR-MDRD Greater than 90; Glucose 137 mg/dL (83-110); Magnesium 1.4 mg/dL (1.6-2.6); Phosphorus 2.1 mg/dL (2.3-4.7); Potassium 3.6 mmol/L (3.5-5.1); Sodium 141 mmol/L (136-145)
[2018-01-20] MEDS: Lisinopril 20 MG TAB PO SCH (07:57)
[2018-01-20] MEDS: Polyethylene Glycol 3350 17 GM Packet PO SCH (07:59)
[2018-01-20] MEDS: Enoxaparin Sodium 30 MG/0.3 ML SYRINGE SC SCH (07:59)
[2018-01-20] MEDS: Pantoprazole 40 MG VIAL IVP SCH ×2 (08:01→21:19)
--- NOTE | 2018-01-20 08:53 | PRG ---
DATE OF SERVICE: 01/19/2018 SUBJECTIVE: Ms. Ovalles is eating regular diet. She states she is much better. She has had no fev er, chills or vomiting or melena. OBJECTIVE: ABDOMEN: Much softer, epigastrium is mildly tender without rebound or guarding. The abdomen is soft and nontender. EXTREMITIES: No clubbing, cyanosis, or edema. VITAL SIGNS: Temperature is 98.7, pulse of 84, and blood pressure 150/67. LABORATORY STUDIES: White count 8.8, hemoglobin 14.7, platelet count 196. Lipase is 38. ASSESSMENT: Epigastric pain with abnormal CAT scan, thickening of the duodenum. This could be chron ic from previous episode of severe pancreatitis many years ago. This could be related to recent epis ode of pancreatitis, duodenitis, and ulcer. This time, the patient refuses further workup, does not want endoscopy. She is feeling better. There has been no signs of acute bleeding. RECOMMENDATIONS: 1. I would continue on a PPI 6-8 weeks. If there is worsening symptoms, I would be more than happy to come back to reevaluate for EGD. 2. At this time, I do not think she has any pancreatitis. She does not have much pancreas tissue fr om about what sounds like severe necrotizing pancreatitis about 20 years ago. No signs of pancreatic inflammation in this CT.
[2018-01-20] MEDS: Insulin Detemir 100 UNITS/ML 12 UNITS in Pre-Filled Syringe 1 EACH SC SCH (11:18)
[2018-01-20] MEDS ORDERED: Potassium Phosphate 30 MMOL in Sodium Chloride 0.9% 500 ML IVPB SCH (14:45)
[2018-01-20] MEDS ORDERED: Magnesium Sulfate 4 GM in Sodium Chloride 0.9% 250 ML 250 ML IVPB SCH (14:45)
[2018-01-20] MEDS ORDERED: Potassium Chloride 20 MEQ TAB PO SCH (14:45)
--- NOTE | 2018-01-20 14:48 | PDOC.PN ---
- Subjective Encounter Start Date: 01/20/18 Encounter Start Time: 13:00 sarwat is seen today, alert and orineted, her Abdominal pain is resolved. - Objective Resuscitation Status: Resuscitation Status FULL:Full Resuscitation MAR Reviewed: Yes Vital Signs & Weight: Vital Signs (12 hours) Temp Pulse Pulse Pulse Resp BP BP 01/20/18 11:00 98.7 F 98 18 01/20/18 09:00 84 102 H 139/73 01/20/18 08:21 97.5 F L 81 18 01/20/18 08:20 97.5 F L 81 18 01/20/18 07:57 135/85 01/20/18 05:00 97.9 F 86 18 BP BP Pulse Ox 01/20/18 11:00 137/69 97 01/20/18 09:00 117/72 01/20/18 08:21 96 01/20/18 08:20 135/85 96 01/20/18 07:57 01/20/18 05:00 135/85 96 Weight Weight 131 lb 4.8 oz I&O: 01/19/18 01/20/18 01/21/18 06:59 06:59 06:59 Intake Total 1600 410 Balance 1600 410 Result Diagrams: 01/19/18 04:35 01/20/18 03:37 Additional Labs: Accuchecks 01/20/18 01/20/18 01/20/18 11:13 07:41 05:58 POC Glucose 355 H 64 L 74 01/20/18 01/19/18 01/19/18 04:25 23:40 20:55 POC Glucose 101 227 H 240 H 01/19/18 01/19/18 16:20 14:51 POC Glucose 266 H 230 H Radiology Reviewed by me: Yes Phys Exam - Physical Examination HEENT: PERRLA, moist MMs Neck: no nodes, no JVD Respiratory: no wheezing, no rales Cardiovascular: RRR, no significant murmur Gastrointestinal: soft, non-tender Musculoskeletal: no edema, pulses present Lymphatic: no nodes Psychiatric: normal affect, A&O x 3 Dx/Plan (1) DKA (diabetic ketoacidoses) Code(s): E13.10 - OTH DIABETES MELLITUS WITH KETOACIDOSIS WITHOUT COMA Status : Resolved Comment: Pt is On SC insulin now, Will do 10 untic Sc for a basal Insulin. Pt is on clear liquids for possible EGD. (2) Acute pancreatitis Code(s): K85.90 - ACUTE PANCREATITIS WITHOUT NECROSIS OR INFECTION, UNSP Status: Resolved Comment: resolved. (3) DM type 2 (diabetes mellitus, type 2) Status: Acute Comment: Stbale on Levemir 20 untis and SSI. (4) Hypertension Code(s): I10 - ESSENTIAL (PRIMARY) HYPERTENSION Status: Acute Comment: Well controlled, Continue To Monitor (5) Leucocytosis Code(s): D72.829 - ELEVATED WHITE BLOOD CELL COUNT, UNSPECIFIED Status: Acute Comment: likely from Dehydration, Monitor for any source of infection. - Plan cont current plan of care, plan discussed w/ family, bustamante catheter, PT/OT ( Plan for Rehab placement.), group social worker, speech therapy, respiratory therapy , incentive spirometry, DVT proph w/lovenox * . - Discharge Day Encounter end time: 13:35 Review of Systems - Review of Systems Constitutional: negative: fever, chills, sweats, weakness, malaise, other Eyes: negative: Pain, Vision Change, Conjunctivae Inflammation, Eyelid Inflammation, Redness, Other ENT: negative: Ear Pain, Ear Discharge, Nose Pain, Nose Discharge, Nose Congestion, Mouth Pain, Mouth Swelling, Throat Pain, Throat Swelling, Other Cardiovascular: negative: chest pain, palpitations, orthopnea, paroxysmal nocturnal dyspnea, edema, light headedness, other Gastrointestinal: negative: Nausea, Vomiting, Abdominal Pain, Diarrhea, Constipation, Melena, Hematochezia, Other Musculoskeletal: negative: Neck Pain, Shoulder Pain, Arm Pain, Back Pain, Hand Pain, Leg Pain, Foot Pain, Other Skin: negative: Rash, Lesions, Pedro, Bruising, Other - Medications/Allergies Allergies/Adverse Reactions: Allergies Allergy/AdvReac Type Severity Reaction Status Date / Time No Known Allergies Allergy Verified 01/17/18 03:01 Medications: Current Medications Dextrose/Water (Dextrose 50%) 25 gm IVP PRN PRN PRN Reason: HYPOGLYCEMIA PROTOCOL Diltiazem HCl (Cardizem Cd) 360 mg PO DAILY [facility] Last Admin: 01/20/18 07:57 Dose: 360 mg Enoxaparin Sodium (Lovenox) 30 mg SC 0900 [facility] Last Admin: 01/20/18 07:59 Dose: 30 mg Glucagon (Glucagon) 1 mg IM PRN PRN PRN Reason: HYPOGLYCEMIA PROTOCOL Dextrose/Water (D5w) 1,000 mls @ 0 mls/hr IV INF PRN; As Directed PRN Reason: HYPOGLYCEMIA PROTOCOL Magnesium Sulfate 4 gm/ Sodium (Chloride) 258 mls @ 86 mls/hr IVPB ONE [facility] Potassium Phosphate 30 mmol/ (Sodium Chloride) 510 mls @ 83.3 mls/hr IVPB ONE [facility] Insulin Detemir 10 units/ (Miscellaneous Medication) 0.1 mls @ 0 mls/hr SC HS DIONISIO Insulin Detemir 10 units/ (Miscellaneous Medication) 0.1 mls @ 0 mls/hr SC QAM [facility] Insulin Human Lispro (Humalog) 0 units SC .MODERATE SLIDING SC PRN; Protocol PRN Reason: MODERATE SLIDING SCALE Last Admin: 01/19/18 17:14 Dose: 6 unit Insulin Human Lispro (Humalog) 4 units SC AC [facility] Isosorbide Mononitrate (Imdur Er) 30 mg PO BID [facility] Last Admin: 01/20/18 07:58 Dose: 30 mg Lisinopril (Zestril) 20 mg PO DAILY [facility] Last Admin: 01/20/18 07:57 Dose: 20 mg Magnesium Oxide (Magnesium Oxide) 800 mg PO PRN PRN PRN Reason: FOR SERUM MAG < 1.4 Ccu Electrolyte (Replacement Protocol) 0 each FS PRN PRN PRN Reason: FOR ELECTROLYTE REPLACEMENT Pantoprazole Sodium (Protonix) 40 mg IVP Q12HR [facility] Last Admin: 01/20/18 08:01 Dose: 40 mg Polyethylene Glycol (Miralax) 17 gm PO DAILY [facility] Last Admin: 01/20/18 07:59 Dose: 17 gm Potassium Chloride (K-Dur) 40 meq PO ONE [facility] Sodium Chloride (Flush - Normal Saline) 10 ml IVF PRN PRN PRN Reason: Saline Flush Last Admin: 01/19/18 09:15 Dose: 10 ml
--- NOTE | 2018-01-20 15:45 | PRG ---
DATE OF SERVICE: 01/20/2018 SERVICE: Pulmonary Medicine. INTERVAL HISTORY: The patient is doing outstanding from a cardiovascular and respiratory standpoint. She denies any current shortness of breath, fevers or chills. She is breathing comfortably and wor nahomi with physical therapy. She is standing and taking some timid steps. Her strength seems to be i mproving somewhat. PHYSICAL EXAMINATION: VITAL SIGNS: Afebrile, pulse 98, blood pressure 137/69, respirations 18, saturation 97% on room air. GENERAL: The patient is awake and alert, in no apparent distress. LUNGS: Good air entry. No prolonged expiratory phase, wheezing, rhonchi or crackles. HEART: Normal rate and regular. ABDOMEN: Soft, nontender and nondistended. Bowel sounds are positive. MUSCULOSKELETAL: No cyanosis or clubbing. No pitting in the bilateral lower extremities. NEUROLOGIC: Grossly nonfocal. LABORATORY DATA: Metabolic profile is beautiful and essentially unremarkable. Her potassium is 3.6. Phosphorus and magnesium remain quite low. Beta hydroxybutyric acid was previously positive. ASSESSMENT: 1. Diabetic ketoacidosis. 2. Type 2 diabetes mellitus. 3. Medical noncompliance. 4. Cognitive impairment, suspected. 5. Metabolic encephalopathy, resolved. 6. Hypokalemia. 7. Hypophosphatemia. 8. Hypomagnesemia. PLAN: The patient is doing fantastic from my perspective. She can transition out of the IMCU to the medical unit. Pulmonary will continue to follow while the patient remains in house. We will get ag gressive with fixing her potassium, phosphorus and magnesium and repeat levels in the morning, if she is still here. When she goes to the floor, we will likely sign off. Please call with additional qu estions, moving forward.
[2018-01-20] MEDS: Potassium Chloride 20 MEQ TAB PO SCH (15:49)
[2018-01-20] MEDS: HumaLOG 300 UNITS/3 ML VIAL SC SCH (16:24)
[2018-01-20] MEDS ORDERED: Insulin Detemir 100 UNITS/ML 10 UNITS in Pre-Filled Syringe 1 EACH SC SCH (21:00)
[2018-01-20] MEDS: HumaLOG 300 UNITS/3 ML VIAL SC PRN (21:19)
[2018-01-21 05:17] LABS: Anion Gap 12 mmol/L (10-20); BUN (Urea Nitrogen) 9 mg/dL (9.8-20.1); Calc. Creatinine Clearance 81 mL/min (70-130); Calcium 9.1 mg/dL (7.8-10.44); Carbon Dioxide 27 mmol/L (23-31); Chloride 104 mmol/L (98-107); Estimated GFR-MDRD Greater than 90; Glucose 60 mg/dL (83-110); Magnesium 2.1 mg/dL (1.6-2.6); Phosphorus 5.5 mg/dL (2.3-4.7); Sodium 139 mmol/L (136-145)
[2018-01-21] MEDS: HumaLOG 300 UNITS/3 ML VIAL SC SCH ×3 (08:23→17:58)
[2018-01-21] MEDS: Enoxaparin Sodium 30 MG/0.3 ML SYRINGE SC SCH (08:25)
[2018-01-21] MEDS: Pantoprazole 40 MG VIAL IVP SCH ×2 (08:25→22:04)
[2018-01-21] MEDS: Lisinopril 20 MG TAB PO SCH (08:25)
[2018-01-21] MEDS: Polyethylene Glycol 3350 17 GM Packet PO SCH (08:25)
[2018-01-21] MEDS: Insulin Detemir 100 UNITS/ML 10 UNITS in Pre-Filled Syringe 1 EACH SC SCH (09:44)
--- NOTE | 2018-01-21 13:12 | PRG ---
DATE OF SERVICE: 01/21/2018 SUBJECTIVE: She feels better. She wants to get up and out of bed. PHYSICAL EXAMINATION: VITAL SIGNS: Temperature 97.4, pulse 72, blood pressure 135/82, respiratory rate 18. HEENT: Unremarkable. NECK: No JVD. CHEST: Clear without wheezing. CARDIAC: S1, S2 regular. ABDOMEN: Soft. EXTREMITIES: No edema. LABORATORY DATA: Sodium 139, potassium 4, BUN 9, creatinine 0.5, glucose 60. ASSESSMENT: Status post uncontrolled diabetes mellitus with diabetic ketoacidosis. PLAN: This is mainly diabetic management problem at this point. No further pulmonary recommendation s. We will sign off. Please recall if needed.
--- NOTE | 2018-01-21 15:21 | PDOC.PN ---
- Subjective Encounter Start Date: 01/21/18 Encounter Start Time: 14:50 Patient had low Blood sugar this morning , will reduce evening levemir. Discussed with Family, has good Support at Home, Will need to discharge home tomorrow with home health. - Objective Resuscitation Status: Resuscitation Status FULL:Full Resuscitation MAR Reviewed: Yes Vital Signs & Weight: Vital Signs (12 hours) Temp Pulse Resp BP BP Pulse Ox 01/21/18 11:53 97.8 F 74 18 114/65 93 L 01/21/18 08:25 135/85 01/21/18 08:00 97.4 F L 72 17 01/21/18 07:00 97.4 F L 72 17 148/82 H 96 01/21/18 04:01 97.2 F L 81 18 169/76 H 93 L Weight Weight 130 lb 11.746 oz I&O: 01/20/18 01/21/18 01/22/18 06:59 06:59 06:59 Intake Total 410 2039 Balance 410 2039 Result Diagrams: 01/19/18 04:35 01/21/18 04:36 Additional Labs: Accuchecks 01/21/18 01/21/18 01/21/18 14:07 10:02 05:22 POC Glucose 145 H 127 H 153 H 01/21/18 01/21/18 01/21/18 04:36 01:20 00:21 POC Glucose 54 L* 71 71 01/20/18 01/20/18 20:25 16:08 POC Glucose 225 H 245 H Radiology Reviewed by me: Yes EKG Reviewed by me: Yes Phys Exam - Physical Examination HEENT: PERRLA, moist MMs Neck: no nodes, no JVD Respiratory: no wheezing, no rales Cardiovascular: RRR, no significant murmur Gastrointestinal: soft, non-tender Musculoskeletal: no edema, pulses present Neurological: non-focal, normal sensation Lymphatic: no nodes Psychiatric: normal affect, A&O x 3 Skin: no rash, normal turgor Dx/Plan (1) DKA (diabetic ketoacidoses) Code(s): E13.10 - OTH DIABETES MELLITUS WITH KETOACIDOSIS WITHOUT COMA Status : Resolved Comment: Pt is On SC insulin now, Will do 10 untic Sc for a basal Insulin. Pt is on clear liquids for possible EGD. (2) Acute pancreatitis Code(s): K85.90 - ACUTE PANCREATITIS WITHOUT NECROSIS OR INFECTION, UNSP Status: Resolved Comment: resolved. (3) DM type 2 (diabetes mellitus, type 2) Status: Acute Qualifiers: Diabetes mellitus complication status: with hypoglycemia Comment: will reduce Levmir to 5 Units in Evening and 10 untis Am. (4) Hypertension Code(s): I10 - ESSENTIAL (PRIMARY) HYPERTENSION Status: Acute Comment: Well controlled, Continue To Monitor (5) Leucocytosis Code(s): D72.829 - ELEVATED WHITE BLOOD CELL COUNT, UNSPECIFIED Status: Acute Comment: likely from Dehydration, Monitor for any source of infection. 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 Discharge to home tomorrow.), respiratory therapy, incentive spirometry, DVT proph w/lovenox * . - Discharge Day Encounter end time: 15:20 Review of Systems - Review of Systems Eyes: negative: Pain, Vision Change, Conjunctivae Inflammation, Eyelid Inflammation, Redness, Other ENT: negative: Ear Pain, Ear Discharge, Nose Pain, Nose Discharge, Nose Congestion, Mouth Pain, Mouth Swelling, Throat Pain, Throat Swelling, Other Respiratory: negative: Cough, Dry, Shortness of Breath, Hemoptysis, SOB with Excertion, Pleuritic Pain, Sputum, Wheezing Cardiovascular: negative: chest pain, palpitations, orthopnea, paroxysmal nocturnal dyspnea, edema, light headedness, other Gastrointestinal: negative: Nausea, Vomiting, Abdominal Pain, Diarrhea, Constipation, Melena, Hematochezia, Other Genitourinary: negative: Dysuria, Frequency, Incontinence, Hematuria, Retention , Other Musculoskeletal: negative: Neck Pain, Shoulder Pain, Arm Pain, Back Pain, Hand Pain, Leg Pain, Foot Pain, Other - Medications/Allergies Allergies/Adverse Reactions: Allergies Allergy/AdvReac Type Severity Reaction Status Date / Time No Known Allergies Allergy Verified 01/17/18 03:01 Medications: Current Medications Dextrose/Water (Dextrose 50%) 25 gm IVP PRN PRN PRN Reason: HYPOGLYCEMIA PROTOCOL Diltiazem HCl (Cardizem Cd) 360 mg PO DAILY [facility] Last Admin: 01/21/18 08:26 Dose: 360 mg Enoxaparin Sodium (Lovenox) 30 mg SC 0900 [facility] Last Admin: 01/21/18 08:25 Dose: 30 mg Glucagon (Glucagon) 1 mg IM PRN PRN PRN Reason: HYPOGLYCEMIA PROTOCOL Dextrose/Water (D5w) 1,000 mls @ 0 mls/hr IV INF PRN; As Directed PRN Reason: HYPOGLYCEMIA PROTOCOL Insulin Detemir 10 units/ (Miscellaneous Medication) 0.1 mls @ 0 mls/hr SC QAM [facility] Last Admin: 01/21/18 09:44 Dose: 0.1 mls Insulin Detemir 5 units/ (Miscellaneous Medication) 0.05 mls @ 0 mls/hr SC HS [facility] Insulin Human Lispro (Humalog) 0 units SC .MODERATE SLIDING SC PRN; Protocol PRN Reason: MODERATE SLIDING SCALE Last Admin: 01/20/18 21:19 Dose: 4 unit Insulin Human Lispro (Humalog) 4 units SC [facility] Last Admin: 01/21/18 13:28 Dose: 4 unit Isosorbide Mononitrate (Imdur Er) 30 mg PO BID [facility] Last Admin: 01/21/18 08:26 Dose: 30 mg Lisinopril (Zestril) 20 mg PO DAILY [facility] Last Admin: 01/21/18 08:25 Dose: 20 mg Magnesium Oxide (Magnesium Oxide) 800 mg PO PRN PRN PRN Reason: FOR SERUM MAG < 1.4 Ccu Electrolyte (Replacement Protocol) 0 each FS PRN PRN PRN Reason: FOR ELECTROLYTE REPLACEMENT Pantoprazole Sodium (Protonix) 40 mg IVP Q12HR [facility] Last Admin: 01/21/18 08:25 Dose: 40 mg Polyethylene Glycol (Miralax) 17 gm PO DAILY [facility] Last Admin: 01/21/18 08:25 Dose: 17 gm Sodium Chloride (Flush - Normal Saline) 10 ml IVF PRN PRN PRN Reason: Saline Flush Last Admin: 01/20/18 21:20 Dose: 10 ml
[2018-01-21] MEDS ORDERED: Insulin Detemir 100 UNITS/ML 5 UNITS in Pre-Filled Syringe 1 EACH SC SCH (21:00)
[2018-01-22 04:31] LABS: Anion Gap 12 mmol/L (10-20); BUN (Urea Nitrogen) 12 mg/dL (9.8-20.1); Calc. Creatinine Clearance 75 mL/min (70-130); Calcium 9.1 mg/dL (7.8-10.44); Carbon Dioxide 27 mmol/L (23-31); Chloride 104 mmol/L (98-107); Estimated GFR-MDRD Greater than 90; Glucose 129 mg/dL (83-110); Magnesium 1.9 mg/dL (1.6-2.6); Phosphorus 3.9 mg/dL (2.3-4.7); Potassium 4.3 mmol/L (3.5-5.1); Sodium 139 mmol/L (136-145)
[2018-01-22] MEDS: HumaLOG 300 UNITS/3 ML VIAL SC SCH ×2 (08:23→11:31)
[2018-01-22] MEDS: Lisinopril 20 MG TAB PO SCH (09:17)
[2018-01-22] MEDS: Insulin Detemir 100 UNITS/ML 10 UNITS in Pre-Filled Syringe 1 EACH SC SCH (09:18)
[2018-01-22] MEDS: Enoxaparin Sodium 30 MG/0.3 ML SYRINGE SC SCH (09:19)
[2018-01-22] MEDS: Polyethylene Glycol 3350 17 GM Packet PO SCH (09:19)
[2018-01-22 11:25] VITALS: BP 129/80; TEMP 97.3
[2018-01-22] MEDS: HumaLOG 300 UNITS/3 ML VIAL SC PRN (11:30)
--- NOTE | 2018-01-22 16:13 | DIS ---
DATE OF ADMISSION: 01/17/2018 DATE OF DISCHARGE: 01/22/2018 DISCHARGE DIAGNOSES: 1. Diabetic ketoacidosis, resolved. 2. Diabetes mellitus type 2, insulin requiring, labile. 3. Acute kidney injury, resolved. 4. Elevated lipase, resolved. 5. Leukocytosis, resolved. 6. Hypertension, stable. 7. Acute metabolic encephalopathy, resolved. CONSULTATIONS: Dr. Novak and Rebecca with Pulmonology Service. Dr. Candelaria with GI Service. PERTINENT LAB AND X-RAY FINDINGS: Creatinine ranged between 0.55-1.93, estimated GFR ranging between 25 to greater than 90. Hemoglobin A1c 11.3, lactic acid level 1.3. Lipase ranged between 38-41. C BC showed a white blood cell count ranging between 8.8-20.5, hemoglobin 14.7, hematocrit 45, platelet count 196. Beta hydroxybutyrate level 15.44. Blood cultures x2 from 01/16/2018 showed no growth at 5 days. Influenza A and B antigen dated 01/16/2018 negative. Portable chest x-ray dated 01/16/2018 showed no acute cardiopulmonary process. CT of the abdomen and pelvis dated 01/17/2018 showed atrop hy of the pancreatic body and tail with edema likely reactive. HOSPITAL COURSE: Patient was admitted after initially presenting with fatigue and weakness with asso ciated severe hyperglycemia with glucose values in near 800. The patient was noted in diabetic ketoa cidosis and placed on DKA protocol with aggressive IV fluid hydration and insulin infusion. The vivian ent was also noted with associated metabolic encephalopathy and given aggressive supportive measures. No specific evidence of infectious process was identified, and patient stabilized on insulin infusi on transitioning to long-acting subcutaneous Levemir. The patient's overall mental status had improv ed with supportive measures and treatment for DKA. The patient was also noted with elevated lipase a t the time of admission with CT findings concerning for questionable pancreatitis. The patient was e valuated by the GI Service, who did not feel this was an active pancreatitis and recommended general supportive measures and serial lipase monitoring. The patient's lipase trend continued to improve an d resolved as the patient's presenting complaint had resolved. The patient's overall metabolic deran gements had improved with IV fluid hydration and stabilization of glucose trend. The patient was giv en general diabetic education with adjustment to her chronic Levemir dosing to 10 units subcutaneousl y daily and 5 units subcutaneously at bedtime. The patient overall remained clinically stable, daphnie ating regular oral intake; however, was noted with deconditioning and recommendations for ongoing out patient physical therapy through home health services. The patient and family are deciding on home [facility] services at the time of discharge. On the day of discharge, I have examined the patient, sean wed discharge instructions and outpatient planning for followup regarding patient's overall diabetic management and insulin therapy. The patient and family had verbalized understanding at the time of t his discharge on 01/22/2018. The patient overall clinically stable and ready for discharge on 2017. DISCHARGE MEDICATIONS: 1. Levemir 10 units subcutaneously daily and 5 units subcutaneously at bedtime. 2. Diltiazem 360 mg p.o. daily. 3. Isosorbide mononitrate 30 mg p.o. b.i.d. 5. Lisinopril 20 mg 1 tab p.o. daily. 6. Metformin 500 mg p.o. b.i.d. 7. Protonix 40 mg p.o. b.i.d. x4 weeks. FOLLOWUP: The patient may follow up with her primary care provider at [facility] in [place], [place] within 7 days of discharge. CONDITION ON DISCHARGE: Fair. ACTIVITY: Ad merline. Rolling walker for ambulation. Outpatient physical therapy through home health s ervices being coordinated at the time of discharge. DIET: ADA. CODE STATUS: FULL. DISPOSITION: Home with home health services including physical therapy on 01/22/2018. Total time preparing and coordinating discharge 35 minutes.
--- NOTE | 2018-02-23 15:04 | EKG ---
Test Reason : Blood Pressure : / mmHG Vent. Rate : 082 BPM Atrial Rate : 082 BPM P-R Int : 164 ms QRS Dur : 104 ms QT Int : 398 ms P-R-T Axes : 074 043 138 degrees QTc Int : 464 ms Normal sinus rhythm Prolonged QT Abnormal ECG Confirmed by SURAJ MIRZA ([id number]), editor trade journal LAMAR SORENSEN ([id number]) on 02/23/2018 3:03:47 PM Referred By: Confirmed By:SURAJ MIRZA
== END 2018-01-22 17:04 | disposition home health service (06) | DRG 637 ==
LOC: ERS 19:55 → IMCU/EMU 01-17 02:13 → SJJU 01-20 18:43
PROVIDERS: ADMIT Internal Medicine; ATTEND Internal Medicine
DX: E11.10 Type 2 diabetes mellitus with ketoacidosis without coma (principal); G93.41 Metabolic encephalopathy; N17.9 Acute kidney failure, unspecified; E83.39 Other disorders of phosphorus metabolism; E83.42 Hypomagnesemia; I10 Essential (primary) hypertension; E87.6 Hypokalemia; E86.0 Dehydration; D72.829 Elevated white blood cell count, unspecified; R79.89 Other specified abnormal findings of blood chemistry; Z91.14 Patient's other noncompliance with medication regimen; Z79.84 Long term (current) use of oral hypoglycemic drugs; Z79.899 Other long term (current) drug therapy
CPT/HCPCS: 36415; 36416; 71045; 74170; 80048; 80053; 81003; 82010; 82330; 82550; 82553; 82803; 83036; 83605; 83690; 83735; 84100; 84478; 84484; 85025; 87040; 87804; 93005; 96361; 96365; 96366; 96368; 96376; C9113; G8978-GP-CL; G8979-GP-CJ; J1650; J1815; J2543; J3370; J3475; J3480; J7050

== ENCOUNTER 2021-12-04 21:13 | Inpatient (IN) | payer MEDICARE, MEDICAID ==
[2021-12-04 23:52] VITALS: BMI 20.6
[2021-12-05] MEDS ORDERED: Dextrose 50% Abboject 50 ML SYRINGE SLOW IVP PRN (04:06)
[2021-12-05] MEDS ORDERED: Acetaminophen 325 MG TAB PO PRN (04:06)
[2021-12-05] MEDS ORDERED: Dextrose 5% in Water 1,000 ML IV PRN (04:06)
[2021-12-05] MEDS ORDERED: Ondansetron ODT 4 MG TAB PO PRN (04:06)
[2021-12-05] MEDS ORDERED: Acetaminophen 650 MG Suppository PR PRN (04:06)
[2021-12-05] MEDS ORDERED: Ondansetron PF 4 MG/2 ML Vial IVP PRN (04:06)
[2021-12-05] MEDS ORDERED: Electrolyte Replacement Protocol 1 EACH FS SCH (04:15)
[2021-12-05] MEDS ORDERED: hydrALAZINE 20 MG/ML VIAL SLOW IVP PRN (04:16)
[2021-12-05] MEDS ORDERED: Sodium Chloride 0.9% 1,000 ML IV SCH (04:30)
[2021-12-05 05:08] LABS: #Basophils 0.1 thou/uL (0.0-0.2); #Lymphocytes 1.3 thou/uL (1.20-3.40); #Monocytes 0.6 thou/uL (0.11-0.59); #Neutrophils 3.7 thou/uL (1.40-6.50); %Basophils 0.9 % (0.0-1.0); %Eosinophils 0.3 % (0.0-10.0); %Lymphocytes 22.5 % (21.0-51.0); %Monocytes 10.3 % (0.0-10.0); %Neutrophils 65.9 % (42.0-75.0); Hemoglobin 13.4 g/dL (12.0-16.0); Mean Corpuscular HGB CONC 32.6 g/dL (32.0-36.0); Mean Corpuscular Hemoglobin 29.6 pg (27.0-31.0); Mean Corpuscular Volume 90.7 fL (78.0-98.0); Mean Platelet Volume 7.6 fL (7.4-10.4); Platelet Count 192 thou/uL (130-400); RBC Distribution Width 12.3 % (11.5-14.5); Red Blood Cell (RBC) Count 4.54 mill/uL (4.20-5.40); White Blood Cell (WBC) Count 5.7 thou/uL (4.8-10.8)
[2021-12-05 05:16] LABS: Hemoglobin A1c 7.2 % (4.0-6.0)
[2021-12-05 05:28] LABS: Anion Gap 13 mmol/L (10-20); BUN (Urea Nitrogen) 14 mg/dL (9.8-20.1); Calc. Creatinine Clearance 75 mL/min (70-130); Calcium 8.5 mg/dL (7.8-10.44); Carbon Dioxide 28 mmol/L (23-31); Chloride 102 mmol/L (98-107); Glucose 154 mg/dL (83-110); Potassium 3.5 mmol/L (3.5-5.1); Sodium 139 mmol/L (136-145)
[2021-12-05] MEDS ORDERED: Cefepime 2 GM in Sodium Chloride 0.9% 100 ML IVPB SCH (08:00)
[2021-12-05] MEDS ORDERED: Lisinopril 5 MG TAB PO SCH (09:00)
[2021-12-05] MEDS: Aspirin 81 mg Enteric Coated Tablet PO SCH (10:02)
[2021-12-05] MEDS: Lantus 1000 UNITS/10 ML VIAL SC SCH (10:06)
[2021-12-05] MEDS: Enoxaparin Sodium 40 MG/0.4 ML SYRINGE SC SCH (10:07)
[2021-12-05] MEDS: Cholecalciferol (Vitamin D3) 400 UNITS TAB PO SCH (10:08)
[2021-12-05] MEDS: Ascorbic Acid 500 mg Chewable Tablet PO SCH (10:08)
[2021-12-05] MEDS: Zinc Sulfate 220 MG CAP PO SCH (10:08)
[2021-12-05] MEDS: HumaLOG 300 UNITS/3 ML VIAL SC PRN (18:05)
[2021-12-05 18:24] LABS: Bacteria/HPF None Seen HPF (None Seen); Bilirubin Negative (Negative); Blood, Urine Negative (Negative); Clarity Clear (Clear); Glucose, Urine (Dipstick) >=1000 mg/dL (Negative); Ketone, Urine Negative (Negative); Leukocyte Negative Leu/uL (Negative); Nitrite Negative (Negative); Protein, Urine (Dipstick) 10 mg/dL (Neg-Trace); RBC/HPF 0-3 HPF (0-3); Specific Gravity, Urine 1.019 (1.002-1.036); Urobilinogen Normal mg/dL (Less than 2)
[2021-12-05 18:28] LABS: Urine Culture Reflex No No
[2021-12-06 05:40] LABS: #Lymphocytes 1.4 thou/uL (1.20-3.40); #Monocytes 0.6 thou/uL (0.11-0.59); #Neutrophils 5.7 thou/uL (1.40-6.50); %Basophils 0.3 % (0.0-1.0); %Eosinophils 0.2 % (0.0-10.0); %Lymphocytes 18.2 % (21.0-51.0); %Monocytes 7.8 % (0.0-10.0); %Neutrophils 73.5 % (42.0-75.0); Hemoglobin 13.9 g/dL (12.0-16.0); Mean Corpuscular HGB CONC 33.8 g/dL (32.0-36.0); Mean Corpuscular Hemoglobin 30.3 pg (27.0-31.0); Mean Corpuscular Volume 89.9 fL (78.0-98.0); Mean Platelet Volume 7.8 fL (7.4-10.4); Platelet Count 197 thou/uL (130-400); RBC Distribution Width 12.2 % (11.5-14.5); Red Blood Cell (RBC) Count 4.57 mill/uL (4.20-5.40); White Blood Cell (WBC) Count 7.8 thou/uL (4.8-10.8)
[2021-12-06 06:07] LABS: Anion Gap 13 mmol/L (10-20); BUN (Urea Nitrogen) 12 mg/dL (9.8-20.1); Calc. Creatinine Clearance 75 mL/min (70-130); Calcium 8.7 mg/dL (7.8-10.44); Carbon Dioxide 25 mmol/L (23-31); Cardiac Risk 3.6 (Less than 4.5); Chloride 98 mmol/L (98-107); Cholesterol 164 mg/dl (< 200 Desired); Glucose 251 mg/dL (83-110); HDL Cholesterol 45 mg/dL (>60 Neg Risk); LDL Cholesterol, Calculated 103 mg/dL; Potassium 3.1 mmol/L (3.5-5.1); Sodium 133 mmol/L (136-145); Triglycerides 81 mg/dL (Less than 150)
[2021-12-06] MEDS: HumaLOG 300 UNITS/3 ML VIAL SC PRN ×2 (06:32→20:54)
[2021-12-06] MEDS ORDERED: Potassium Chloride 40 MEQ in Sodium Chloride 0.9% 250 ML 250 ML IVPB SCH (06:45)
[2021-12-06] MEDS ORDERED: Potassium Chloride 20 MEQ TAB PO SCH (07:15)
[2021-12-06] MEDS ORDERED: Potassium Chloride 40 MEQ in Premix Bag 1 BAG IVPB SCH (07:15)
[2021-12-06] MEDS: Lisinopril 10 MG TAB PO SCH (08:01)
[2021-12-06] MEDS: Ascorbic Acid 500 mg Chewable Tablet PO SCH (08:01)
[2021-12-06] MEDS: Enoxaparin Sodium 40 MG/0.4 ML SYRINGE SC SCH (08:02)
[2021-12-06] MEDS: Lantus 1000 UNITS/10 ML VIAL SC SCH (08:02)
[2021-12-06] MEDS: Cholecalciferol (Vitamin D3) 400 UNITS TAB PO SCH (08:02)
[2021-12-06] MEDS: Aspirin 81 mg Enteric Coated Tablet PO SCH (08:02)
[2021-12-06] MEDS: Zinc Sulfate 220 MG CAP PO SCH (08:02)
[2021-12-06] MEDS ORDERED: Dextrose 5% in Water 1,000 ML IV PRN (11:41)
[2021-12-06] MEDS ORDERED: Dextrose 50% Abboject 50 ML SYRINGE SLOW IVP PRN (11:41)
[2021-12-06] MEDS: HumaLOG 300 UNITS/3 ML VIAL SC SCH ×2 (12:25→17:04)
[2021-12-06] MEDS ORDERED: NPH, Human Insulin Isophane 300 UNIT/3 ML VIAL SC SCH (17:15)
[2021-12-07 05:57] LABS: Anion Gap 13 mmol/L (10-20); BUN (Urea Nitrogen) 11 mg/dL (9.8-20.1); Calc. Creatinine Clearance 89 mL/min (70-130); Calcium 8.6 mg/dL (7.8-10.44); Carbon Dioxide 27 mmol/L (23-31); Chloride 103 mmol/L (98-107); Magnesium 1.5 mg/dL (1.6-2.6); Phosphorus 2.7 mg/dL (2.3-4.7); Potassium 3.7 mmol/L (3.5-5.1); Sodium 139 mmol/L (136-145)
[2021-12-07 06:00] LABS: Glucose 56 mg/dL (83-110)
[2021-12-07] MEDS ORDERED: Magnesium 2 GM/50 ML 2 GM in Premix Bag 1 BAG IVPB SCH (07:00)
[2021-12-07] MEDS ORDERED: Lantus 1000 UNITS/10 ML VIAL SC SCH (09:00)
[2021-12-07] MEDS: Zinc Sulfate 220 MG CAP PO SCH (09:53)
[2021-12-07] MEDS: Aspirin 81 mg Enteric Coated Tablet PO SCH (09:54)
[2021-12-07] MEDS: Lisinopril 10 MG TAB PO SCH (09:54)
[2021-12-07] MEDS: Enoxaparin Sodium 40 MG/0.4 ML SYRINGE SC SCH (09:54)
[2021-12-07] MEDS: Ascorbic Acid 500 mg Chewable Tablet PO SCH (09:54)
[2021-12-07] MEDS: Lantus 1000 UNITS/10 ML VIAL SC SCH (09:54)
[2021-12-07] MEDS: Cholecalciferol (Vitamin D3) 400 UNITS TAB PO SCH (09:54)
[2021-12-07] MEDS: HumaLOG 300 UNITS/3 ML VIAL SC SCH ×3 (09:55→18:34)
[2021-12-07] MEDS ORDERED: Potassium Chloride 20 MEQ TAB PO SCH (19:15)
[2021-12-07] MEDS ORDERED: Magnesium 2 GM/50 ML 4 GM in Premix Bag 1 BAG IVPB SCH (19:15)
[2021-12-07] MEDS ORDERED: Magnesium Sulfate 4 GM in Sodium Chloride 0.9% 250 ML 250 ML IVPB SCH (19:30)
[2021-12-07] MEDS: HumaLOG 300 UNITS/3 ML VIAL SC PRN (20:27)
[2021-12-08 07:29] LABS: Anion Gap 12 mmol/L (10-20); BUN (Urea Nitrogen) 12 mg/dL (9.8-20.1); Calc. Creatinine Clearance 74 mL/min (70-130); Calcium 8.3 mg/dL (7.8-10.44); Carbon Dioxide 27 mmol/L (23-31); Chloride 103 mmol/L (98-107); Glucose 199 mg/dL (83-110); Magnesium 2.1 mg/dL (1.6-2.6); Potassium 3.9 mmol/L (3.5-5.1); Sodium 138 mmol/L (136-145)
[2021-12-08] MEDS ORDERED: Potassium Chloride 20 MEQ TAB PO SCH (08:00)
[2021-12-08] MEDS ORDERED: Amlodipine 5 MG TAB PO SCH (09:00)
[2021-12-08] MEDS: Aspirin 81 mg Enteric Coated Tablet PO SCH (09:14)
[2021-12-08] MEDS: Ascorbic Acid 500 mg Chewable Tablet PO SCH (09:15)
[2021-12-08] MEDS: Cholecalciferol (Vitamin D3) 400 UNITS TAB PO SCH (09:16)
[2021-12-08] MEDS: Lisinopril 10 MG TAB PO SCH (09:16)
[2021-12-08] MEDS: Zinc Sulfate 220 MG CAP PO SCH (09:16)
[2021-12-08] MEDS: Enoxaparin Sodium 40 MG/0.4 ML SYRINGE SC SCH (09:16)
[2021-12-08] MEDS: HumaLOG 300 UNITS/3 ML VIAL SC SCH (09:18)
[2021-12-08] MEDS: Lantus 1000 UNITS/10 ML VIAL SC SCH (09:19)
[2021-12-08 12:58] VITALS: BP 125/65; TEMP 98
[2021-12-09] MEDS ORDERED: Apixaban 2.5 MG TAB PO SCH (09:00)
== END 2021-12-08 14:04 | disposition home health service (06) | DRG 177 ==
LOC: 2SW 22:53
PROVIDERS: ADMIT Student in an Organized Health Care Education/Training Program; ATTEND Family Medicine
PROC: 8E0ZXY6 Isolation (ICD-10-PCS; principal; 2021-12-04)
DX: U07.1 COVID-19 (principal); G93.41 Metabolic encephalopathy; N39.0 Urinary tract infection, site not specified; I69.351 Hemiplegia and hemiparesis following cerebral infarction affecting right dominant side; I47.2 Ventricular tachycardia; E03.9 Hypothyroidism, unspecified; R00.1 Bradycardia, unspecified; I44.0 Atrioventricular block, first degree; I10 Essential (primary) hypertension; E89.0 Postprocedural hypothyroidism; F03.90 Unspecified dementia, unspecified severity, without behavioral disturbance, psychotic disturbance, mood disturbance, and anxiety; I08.1 Rheumatic disorders of both mitral and tricuspid valves; E11.65 Type 2 diabetes mellitus with hyperglycemia; I48.0 Paroxysmal atrial fibrillation; Z79.899 Other long term (current) drug therapy; Z79.84 Long term (current) use of oral hypoglycemic drugs; Z79.4 Long term (current) use of insulin; I69.392 Facial weakness following cerebral infarction
CPT/HCPCS: 36415; 36416; 70551; 71045; 80048; 80061; 81001; 83036; 83605; 83735; 84100; 84443; 85025; 93005; 93010; 93306; 93880; J0692; J1650; J1815; J3475; J3480; J3490; J7050